=== PATIENT | male | born 1975 | race African-American/Black ===

== ENCOUNTER 2018-10-28 16:42 | Inpatient (IN) ==
[2018-10-28] MEDS ORDERED: THIAMINE INJ 100 MG, FOLIC ACID INJ 1 MG, MAGNESIUM SULF INJ 2 GM, MULTIVITAMIN INJ 10 ... IV ONE (17:18)
[2018-10-28 17:44] LABS: Basophils # 0.1 10*3/uL (0.0-0.2); Basophils % 1.3 % (0.0-0.8); Eosinophils # 0.1 10*3/uL (0.0-0.87); Eosinophils % 2.3 % (0.00-10.9); Hematocrit 34.2 VOL% (42.0-52.0); Hemoglobin 11.6 GM/DL (14.0-18.0); Immature Granulocytes % 0.2 %; Immature Granulocytes Absolute 0.01 #; Lymphocytes # 1.1 10*3/uL (1.4-4.0); Lymphocytes % 20.8 % (21.2-54.2); Mean Corpuscular HGB Conc 33.9 GM/DL (32-36); Mean Corpuscular Hemoglobin 32 PG (27-34); Mean Corpuscular Volume 94.5 FL (87-102); Mean Platelet Volume 9.5 FL (9.6-12.0); Monocytes # 0.8 10*3/uL (0.11-0.8); Monocytes % 15.7 % (1.7-12.7); Neutrophils # 3.2 10*3/uL (1.4-7.4); Neutrophils % 59.7 % (38.7-73.9); Platelet Count 185 T/CUMM (130-400); Red Blood Count 3.62 MC/CUMM (3.8-5.5); White Blood Count 5.3 T/CUMM (4-12)
[2018-10-28 17:53] LABS: INR 1.1; PT Patient Result 11.4 SECS
[2018-10-28 18:05] LABS: Alanine Aminotransferase 145 U/L (16-61); Albumin 3.7 G/DL (3.4-5.0); Alkaline Phosphatase 56 U/L (45-117); Aspartate Amino Transferase 156 U/L (0-37); Blood Urea Nitrogen 18 MG/DL (7-18); Calcium 8.5 MG/DL (8.5-10.1); Glucose 90 MG/DL (74-106); Osmolality,Calculated 269.2 MOS/KG (273-304); Potassium 3.3 MMOL/L (3.5-5.1); Sodium 134 MMOL/L (136-145); Total Protein 7.3 G/DL (6.4-8.3)
[2018-10-28 18:41] LABS: Eosinophils 5 % (0-10); Lymphocytes 20 % (20-55); Macrocytosis Slight; Platelet Estimate Normal; Segmented Neutrophils 64 % (50-85); Total Cells Counted 100
[2018-10-28 18:43] LABS: Hypochromasia Slight
[2018-10-28 19:28] LABS: Apearance,Urine Slightly Hazy (Clear); Bilirubin,Urine Negative (Negative); Blood, Urine Small mg/dL (Negative); Glucose,Urine (UA) Negative (Negative); Hyaline Casts,Urine 13 /LPF (0-3); Ketones,Urine 5 mg/dL (Negative); Mucus,Urine Occasional /LPF (Occasional); Nitrite,Urine Negative (Negative); Protein,Urine Negative; RBC,Urine 2 /HPF (0-4); Urine Color Yellow (Yellow); Urine Specific Gravity 1.009 (1.001-1.035); WBC,Urine 2 /HPF (0-6)
[2018-10-28 19:32] LABS: Barbiturates Screen,Urine Negative (Negative); Benzodiazepines Screen,Urine Positive (Negative); Cannabinoid Screen,Urine Negative (Negative); Opiate Screen,Urine Negative (Negative); Phencyclidine Screen,Urine Negative (Negative)
[2018-10-28] MEDS ORDERED: MAGNESIUM SULF RIDER 2 GM in PREMIX 1 EACH IV ONE (20:12)
[2018-10-28] MEDS ORDERED: ONDANSETRON 4 MG/2 ML VIAL IV PRN (20:12)
[2018-10-28] MEDS ORDERED: INFLUENZA VIRUS VACCINE 0.5 ML SYRINGE IM ONE (20:19)
[2018-10-28 20:54] LABS: PT Patient Result 11.2 SECS; Partial Thromboplastin Time 23.7 SECS (0-40)
[2018-10-28] MEDS: DEXTROSE 5% NACL 0.9% 1,000 ML IV SCH (21:00)
[2018-10-28 21:15] LABS: Troponin I 0.034 NG/ML (0.00-0.045)
[2018-10-28] MEDS: POTASSIUM CHLORIDE RIDER 10 MEQ in PREMIX 1 EACH IV SCH ×3 (21:20→23:53)
[2018-10-28] MEDS: LORazepam 2 MG/1 ML VIAL IV PRN (21:21)
[2018-10-28] MEDS: ENOXAPARIN 40 MG/0.4 ML SYRINGE SUBCUT SCH (21:24)
[2018-10-28] MEDS: chlordiazePOXIDE 25 MG CAPSULE PO PRN (21:24)
[2018-10-28 21:52] LABS: ABG Base Excess 0.1 MMOL/L (-2.5-2.5); ABG HCO3 24.5 MMOL/L (20-26); ABG PCO2 37.4 MM HG (35-48); ABG PH 7.421 (7.35-7.45); ABG PO2 93.4 MM HG (80-95); ABG TCO2 21.8 MMOL/L (23-27); Allen Test Positive; Pt O2 Delivery Device Room Air
[2018-10-28 22:46] LABS: Vitamin B12 696 PG/ML (211-911)
[2018-10-28] MEDS ORDERED: POTASSIUM CHLORIDE RIDER 10 MEQ in PREMIX 1 EACH IV SCH (23:30)
[2018-10-28 23:34] LABS: Folate > 24.0 NG/ML (5.4-24.0)
[2018-10-29] MEDS: LORazepam 2 MG/1 ML VIAL IV PRN (00:34)
[2018-10-29] MEDS ORDERED: HALOPERIDOL 5 MG/ML AMP IM ONE (01:21)
[2018-10-29 05:12] LABS: Cholesterol 134 MG/DL (50-200); HDL Cholesterol 68 MG/DL (40-60); Risk Ratio 1.97; Triglycerides 69 MG/DL (2-150); Troponin I 0.026 NG/ML (0.00-0.045); VLDL CHOLESTEROL 13.8 MG/DL
[2018-10-29] MEDS: THIAMINE 200 MG/2 ML VIAL IV SCH (08:19)
[2018-10-29] MEDS: MULTIVITAMIN (CENTRUM) TABLET PO SCH (08:22)
[2018-10-29] MEDS: FOLIC ACID 1 MG TABLET PO SCH (08:23)
[2018-10-29] MEDS: PANTOPRAZOLE 40 MG TABLET PO SCH (08:23)
[2018-10-29] MEDS: DEXTROSE 5% NACL 0.9% 1,000 ML IV SCH ×2 (17:18→17:46)
[2018-10-29] MEDS: ENOXAPARIN 40 MG/0.4 ML SYRINGE SUBCUT SCH (20:45)
[2018-10-30] MEDS: DEXTROSE 5% NACL 0.9% 1,000 ML IV SCH ×3 (02:12→20:16)
[2018-10-30 02:46] LABS: Basophils # 0.1 10*3/uL (0.0-0.2); Eosinophils # 0.3 10*3/uL (0.0-0.87); Eosinophils % 9.6 % (0.00-10.9); Hemoglobin 10.7 GM/DL (14.0-18.0); Immature Granulocytes % 0.3 %; Immature Granulocytes Absolute 0.01 #; Lymphocytes # 0.9 10*3/uL (1.4-4.0); Mean Corpuscular HGB Conc 33.4 GM/DL (32-36); Mean Corpuscular Hemoglobin 32 PG (27-34); Mean Corpuscular Volume 96.1 FL (87-102); Mean Platelet Volume 9.3 FL (9.6-12.0); Monocytes # 0.6 10*3/uL (0.11-0.8); Monocytes % 18.5 % (1.7-12.7); Neutrophils # 1.2 10*3/uL (1.4-7.4); Neutrophils % 39.6 % (38.7-73.9); Platelet Count 188 T/CUMM (130-400); Red Blood Count 3.33 MC/CUMM (3.8-5.5)
[2018-10-30 03:06] LABS: Calcium 8.1 MG/DL (8.5-10.1); Osmolality,Calculated 281.1 MOS/KG (273-304)
[2018-10-30 04:35] LABS: Eosinophils 10 % (0-10); Lymphocytes 28 % (20-55); Segmented Neutrophils 55 % (50-85)
[2018-10-30 04:36] LABS: Platelet Estimate Normal; Total Cells Counted 100
[2018-10-30] MEDS: FOLIC ACID 1 MG TABLET PO SCH (08:42)
[2018-10-30] MEDS: PANTOPRAZOLE 40 MG TABLET PO SCH (08:42)
[2018-10-30] MEDS: MULTIVITAMIN (CENTRUM) TABLET PO SCH (08:42)
[2018-10-30] MEDS: cloNIDine 0.1 MG TABLET PO PRN (08:42)
[2018-10-30] MEDS ORDERED: POTASSIUM CHLORIDE 20 MEQ TABLET PO ONE (09:11)
[2018-10-30] MEDS: LISINOPRIL 10 MG TABLET PO SCH (09:48)
[2018-10-30] MEDS: THIAMINE 200 MG/2 ML VIAL IV SCH (11:01)
[2018-10-30] MEDS: MAGNESIUM OXIDE 400 MG TABLET PO SCH ×2 (14:56→20:15)
[2018-10-30] MEDS: ENOXAPARIN 40 MG/0.4 ML SYRINGE SUBCUT SCH (20:15)
[2018-10-31] MEDS: cloNIDine 0.1 MG TABLET PO PRN ×3 (01:14→11:29)
[2018-10-31] MEDS: DEXTROSE 5% NACL 0.9% 1,000 ML IV SCH (03:31)
[2018-10-31] MEDS: chlordiazePOXIDE 25 MG CAPSULE PO PRN (04:21)
[2018-10-31 05:40] LABS: Basophils % 1.2 % (0.0-0.8); Eosinophils # 0.3 10*3/uL (0.0-0.87); Eosinophils % 8.2 % (0.00-10.9); Hematocrit 33.3 VOL% (42.0-52.0); Hemoglobin 11.1 GM/DL (14.0-18.0); Immature Granulocytes % 0.3 %; Immature Granulocytes Absolute 0.01 #; Lymphocytes # 0.9 10*3/uL (1.4-4.0); Lymphocytes % 25.7 % (21.2-54.2); Mean Corpuscular HGB Conc 33.3 GM/DL (32-36); Mean Corpuscular Hemoglobin 32 PG (27-34); Mean Corpuscular Volume 96.5 FL (87-102); Mean Platelet Volume 9.5 FL (9.6-12.0); Monocytes # 0.5 10*3/uL (0.11-0.8); Monocytes % 14.6 % (1.7-12.7); Neutrophils # 1.7 10*3/uL (1.4-7.4); Platelet Count 219 T/CUMM (130-400); Red Blood Count 3.45 MC/CUMM (3.8-5.5); Red Cell Distribution Width 12.9 % (9.3-17.3); White Blood Count 3.4 T/CUMM (4-12)
[2018-10-31 06:06] LABS: Calcium 8.5 MG/DL (8.5-10.1); Osmolality,Calculated 276.4 MOS/KG (273-304); Potassium 3.3 MMOL/L (3.5-5.1)
[2018-10-31] MEDS: MULTIVITAMIN (CENTRUM) TABLET PO SCH (08:04)
[2018-10-31] MEDS: LISINOPRIL 10 MG TABLET PO SCH (08:04)
[2018-10-31] MEDS: PANTOPRAZOLE 40 MG TABLET PO SCH (08:04)
[2018-10-31] MEDS: FOLIC ACID 1 MG TABLET PO SCH (08:04)
[2018-10-31] MEDS: THIAMINE 200 MG/2 ML VIAL IV SCH (08:04)
[2018-10-31] MEDS: MAGNESIUM OXIDE 400 MG TABLET PO SCH (08:04)
[2018-10-31] MEDS ORDERED: POTASSIUM CHLORIDE 20 MEQ TABLET PO ONE (08:59)
[2018-10-31] MEDS ORDERED: LISINOPRIL 20 MG TABLET PO SCH (09:00)
[2018-10-31] MEDS ORDERED: amLODIPine 10 MG TABLET PO SCH (09:30)
[2018-10-31 12:45] VITALS: BP 142/97
[2018-11-01] MEDS ORDERED: LISINOPRIL 10 MG TABLET PO SCH (09:00)
[2018-11-01] MEDS ORDERED: MAGNESIUM OXIDE 400 MG TABLET PO SCH (09:00)
== END 2018-10-31 12:45 | disposition home or self-care (01) | DRG 897 ==
LOC: N.ED 16:42 → N.EDINP 19:15 → SUATTDRO 19:15 → N.4E 19:54
PROVIDERS: ADMIT Internal Medicine; ATTEND Hospitalist